=== PATIENT | male | born 1980 | race Two or more races ===

== ENCOUNTER 2017-11-09 19:21 | Emergency (ER) | payer MEDICAID, OTHER ==
[~2017-11-09] VITALS: Ht 165.1 cm; Wt 124.7 kg
[2017-11-09 20:54] LABS: Basophils # (auto) 0 uL; Basophils % (auto) 0.2 % (0.0-2.0); Eosinophils # (auto) 0 uL; Hematocrit 48.2 % (41.0-53.0); Hemoglobin 16.4 g/dL (13.5-17.5); Lymphocytes # (auto) 1.4 uL; Lymphocytes % (auto) 15.9 % (10.0-50.0); Mean Corpuscular Hemoglobin 28.5 pg (28.0-32.0); Mean Corpuscular Hgb Conc. 34.1 g/dL (32.0-36.0); Mean Corpuscular Volume 83.6 fL (80.0-100.0); Monocytes # (auto) 0.6 uL; Monocytes % (auto) 6.5 % (0.0-12.0); Neutrophils # (auto) 6.9 uL; Neutrophils % (auto) 77.4 % (37.0-80.0); Nucleated Red Blood Cells % 0.1 %; Platelet Count (auto) 268 10^3/uL (140-450); Red Blood Cells 5.76 10^6/uL (4.5-5.90); Red Cell Distribution Width 13.4 % (11.8-14.3); White Blood Cell 8.9 10^3/uL (4.4-10.8)
[2017-11-09 21:06] LABS: INR 0.93 (0.9-1.15); Partial Thromboplastin Time 30.9 sec (23.78-33.04)
[2017-11-09 21:20] LABS: Chloride 107 mmol/L (98-107); Potassium 3.7 mmol/L (3.5-5.1); Sodium 142 mmol/L (136-145)
[2017-11-09 21:27] LABS: Alanine Aminotransferase 90 U/L (16-61); Albumin 3.6 g/dL (3.4-5.0); Anion Gap 12 (5-15); Aspartate Aminotransferase 37 U/L (15-37); BUN/Creatinine Ratio 13.8; Blood Urea Nitrogen 12 mg/dL (7-18); Calcium 8.1 mg/dL (8.5-10.1); Carbon Dioxide 23 mmol/L (21-32); GFR African American 128 mL/min; GFR Non-African American 106 mL/min; Glucose 134 mg/dL (74-106); Magnesium 2.2 mg/dL (1.6-2.6)
[2017-11-09 21:30] LABS: Alkaline Phosphatase 137 U/L (45-117); Bilirubin, Total 0.8 mg/dL (0.2-1.0); Total Protein 7.7 g/dL (6.4-8.2)
[2017-11-09 21:42] LABS: Alcohol, Urine < 3.0 mg/dL (0-5); Amphetamine Screen, Urine NEGATIVE (NEGATIVE); Barbiturate Scree,Urine NEGATIVE (NEGATIVE); Benzodiazephine Screen, Urine NEGATIVE (NEGATIVE); Cannabinoid Screen, Urine NEGATIVE (NEGATIVE); Cocaine Screen, Urine NEGATIVE (NEGATIVE); Opiate Scree,Urine NEGATIVE (NEGATIVE); Phencyclidine Screen, Urine NEGATIVE (NEGATIVE)
[2017-11-10 02:20] VITALS: BP 133/88
== END 2017-11-10 05:20 | disposition home or self-care (01) ==
LOC: ER 19:21
DX: R07.89 Other chest pain (principal); R42 Dizziness and giddiness; R63.4 Abnormal weight loss; R53.1 Weakness; F20.9 Schizophrenia, unspecified; Z88.0 Allergy status to penicillin
CPT/HCPCS: 36415; 71045; 80053; 80307; 83735; 83880; 84443; 84484; 85025; 85610; 85730; 93005

== ENCOUNTER 2018-01-29 15:28 | Emergency (ER) | payer MEDICAID ==
[~2018-01-29] VITALS: Ht 165.1 cm; Wt 117.9 kg
[2018-01-29] MEDS ORDERED: ASPirin 81 mg TAB PO ONE ×2 (15:45)
[2018-01-29 16:30] LABS: Basophils # (auto) 0 uL; Basophils % (auto) 0.1 % (0.0-2.0); Eosinophils # (auto) 0 uL; Hematocrit 48.1 % (41.0-53.0); Hemoglobin 16.7 g/dL (13.5-17.5); Lymphocytes # (auto) 1.6 uL; Lymphocytes % (auto) 20.1 % (10.0-50.0); Mean Corpuscular Hemoglobin 28.8 pg (28.0-32.0); Mean Corpuscular Hgb Conc. 34.7 g/dL (32.0-36.0); Mean Corpuscular Volume 83.1 fL (80.0-100.0); Monocytes # (auto) 0.6 uL; Monocytes % (auto) 7.5 % (0.0-12.0); Neutrophils # (auto) 5.8 uL; Neutrophils % (auto) 72.3 % (37.0-80.0); Nucleated Red Blood Cells % 0.5 %; Platelet Count (auto) 254 10^3/uL (140-450); Red Blood Cells 5.79 10^6/uL (4.5-5.90); Red Cell Distribution Width 13.6 % (11.8-14.3)
[2018-01-29 16:45] LABS: INR 0.93 (0.9-1.15); Partial Thromboplastin Time 32.1 sec (23.78-33.04)
[2018-01-29 16:50] LABS: Alanine Aminotransferase 100 U/L (16-61); Albumin 3.6 g/dL (3.4-5.0); Alkaline Phosphatase 136 U/L (45-117); Anion Gap 9 (5-15); Aspartate Aminotransferase 46 U/L (15-37); BUN/Creatinine Ratio 15.3; Blood Urea Nitrogen 13 mg/dL (7-18); Calcium 8.4 mg/dL (8.5-10.1); Carbon Dioxide 23 mmol/L (21-32); Chloride 108 mmol/L (98-107); GFR African American 131 mL/min; GFR Non-African American 108 mL/min; Glucose 92 mg/dL (74-106); Magnesium 2.7 mg/dL (1.6-2.6); Potassium 3.9 mmol/L (3.5-5.1); Sodium 140 mmol/L (136-145)
[2018-01-29 20:25] VITALS: BP 139/98
== END 2018-01-29 18:46 | disposition home or self-care (01) ==
LOC: ER 15:31
DX: R07.89 Other chest pain (principal); I10 Essential (primary) hypertension; Z88.0 Allergy status to penicillin
CPT/HCPCS: 36415; 71046; 76705; 80053; 83735; 83880; 84484; 85025; 85610; 85730; 93005; 94761

== ENCOUNTER 2018-09-27 17:03 | Emergency (ER) | payer MEDICAID ==
[~2018-09-27] VITALS: Ht 165.1 cm; Wt 94.3 kg
[2018-09-27 17:32] LABS: Basophils # (auto) 0 uL; Basophils % (auto) 0.3 % (0.0-2.0); Eosinophils # (auto) 0 uL; Hematocrit 46.3 % (41.0-53.0); Lymphocytes # (auto) 1.4 uL; Lymphocytes % (auto) 19.7 % (10.0-50.0); Mean Corpuscular Hemoglobin 28.7 pg (28.0-32.0); Mean Corpuscular Hgb Conc. 34.5 g/dL (32.0-36.0); Mean Corpuscular Volume 83.1 fL (80.0-100.0); Monocytes # (auto) 0.5 uL; Monocytes % (auto) 6.6 % (0.0-12.0); Neutrophils # (auto) 5.3 uL; Neutrophils % (auto) 73.4 % (37.0-80.0); Nucleated Red Blood Cells % 0.1 %; Platelet Count (auto) 211 10^3/uL (140-450); Red Blood Cells 5.57 10^6/uL (4.5-5.90); Red Cell Distribution Width 12.7 % (11.8-14.3); White Blood Cell 7.2 10^3/uL (4.4-10.8)
[2018-09-27 17:52] LABS: Alanine Aminotransferase 49 U/L (16-61); Albumin 3.9 g/dL (3.4-5.0); Amylase 31 U/L (25-115); Anion Gap 10 (5-15); Aspartate Aminotransferase 24 U/L (15-37); Blood Urea Nitrogen 17 mg/dL (7-18); Calcium 8.1 mg/dL (8.5-10.1); Carbon Dioxide 21 mmol/L (21-32); Chloride 110 mmol/L (98-107); Glucose 107 mg/dL (74-106); Lipase 95 U/L (73-393); Magnesium 2.4 mg/dL (1.6-2.6); Potassium 3.6 mmol/L (3.5-5.1); Sodium 141 mmol/L (136-145)
[2018-09-27 17:58] LABS: Alkaline Phosphatase 104 U/L (45-117); BUN/Creatinine Ratio 19.1; Bilirubin, Total 1.1 mg/dL (0.2-1.0); GFR African American 124 mL/min; GFR Non-African American 102 mL/min; Total Protein 7.7 g/dL (6.4-8.2)
[2018-09-27 23:15] LABS: Urine Bacteria NONE SEEN /hpf (None Seen); Urine Blood Negative /uL (Negative); Urine Mucus FEW (None Seen); Urine Specific Gravity 1.009 (1.001-1.035); Urine WBC 1 /hpf (0 - 3)
[2018-09-27 23:16] LABS: Alcohol, Urine < 3.0 mg/dL (0-5); Amphetamine Screen, Urine NEGATIVE (NEGATIVE); Barbiturate Scree,Urine NEGATIVE (NEGATIVE); Benzodiazephine Screen, Urine NEGATIVE (NEGATIVE); Cannabinoid Screen, Urine NEGATIVE (NEGATIVE); Cocaine Screen, Urine NEGATIVE (NEGATIVE); Opiate Scree,Urine NEGATIVE (NEGATIVE); Phencyclidine Screen, Urine NEGATIVE (NEGATIVE)
[2018-09-27 23:36] VITALS: BP 119/72
== END 2018-09-28 02:10 | disposition home or self-care (01) ==
LOC: ER 17:06
DX: R07.89 Other chest pain (principal); K21.9 Gastro-esophageal reflux disease without esophagitis; R42 Dizziness and giddiness; I10 Essential (primary) hypertension; Z88.0 Allergy status to penicillin
CPT/HCPCS: 36415; 71046; 80053; 80307; 81001; 82150; 83690; 83735; 84484; 85025; 93005

== ENCOUNTER 2019-05-31 16:04 | Emergency (ER) | payer MEDICAID ==
[~2019-05-31] VITALS: Ht 165.1 cm; Wt 87.1 kg
[2019-05-31 18:22] VITALS: BP 128/82
== END 2019-05-31 18:20 | disposition home or self-care (01) ==
LOC: ER 16:09
DX: F32.9 Major depressive disorder, single episode, unspecified (principal); F20.9 Schizophrenia, unspecified; I10 Essential (primary) hypertension

== ENCOUNTER 2024-08-03 09:41 | Emergency (ER) | payer MEDICAID ==
[~2024-08-03] VITALS: Ht 165.1 cm; Wt 103.6 kg
[2024-08-03 09:51] VITALS: BP 135/84; PULSE 108; RESP 16; TEMP 98.3; O2SAT 94
--- NOTE | 2024-08-03 10:36 | ED.PDOC ---
Musculoskeletal HPI Comments 44 year old male with a pertinent MHx of a fracture to the left great toe one month ago presents for left toe pain. States he was never given crutches and has been endorsing pain with prolonged ambulation and prolonged standing Denies taking medications at this time Denies any redness swelling warmth to the affected extremity. Denies fevers chills nausea vomiting diarrhea Chief Complaint: Lower Extremity Time Seen by MD: 09:57 Primary Care Provider: none Reviewed Notes: Nurses Notes, Medications, Allergies Allergies: Coded Allergies: Penicillins (Verified Allergy, Unknown, 05/31/19) Information Source: Patient Mode of Arrival: Ambulatory Past Medical History PAST MEDICAL HISTORY: HTN, Schizophrenia Surgical History: Denies all surgeries Family History Family History: Unknown Social History Smoker: Non-Smoker Alcohol: Denies ETOH Use Drugs: Denies Drug Use Lives In: Home All Other Systems: Reviewed and Negative (Per HPI) Physical Exam General Appearance: No Apparent Distress, Normal HEENT: Normal ENT Inspection, Pharynx Normal, TMs Normal Neck: Full Range of Motion, Non-Tender, Normal, Normal Inspection Respiratory: Chest Non-Tender, Lungs Clear, No Accessory Muscle Use, No Respiratory Distress, Normal Breath Sounds Cardiovascular: No Edema, No JVD, No Murmur, No Gallop, Normal Peripheral Pulses, Regular Rate/Rhythm Breast Exam: Deferred Gastrointestinal: No Organomegaly, Non Tender, No Pulsatile Mass, Normal Bowel Sounds, Soft Genitalia: Deferred Pelvic: Deferred Rectal: Deferred Extremities: No calf tenderness, Normal capillary refill, Normal inspection, Normal range of motion, Non-tender, No pedal edema Musculoskeletal : Apperance: Normal 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 Was a procedure done?: No Images 1 - Gross abnormality inspection. No ecchymosis swelling open wounds. No tenderness to palpation. Full range of motion. Nail bed intact. No surrounding erythema to the nail bed. Dorsalis pedis two pulses 2+ and distal neuro sensation intact Differential Diagnosis EXT Differential Diagnosis: Fracture, Sprain, Dislocation X-Ray, Labs, Meds, VS Vital Signs Date Time Temp Pulse Resp B/P (MAP) Pulse Ox O2 Delivery O2 Flow Rate FiO2 2/25/25 09:51 98.3 108 16 135/84 (101) 94 08/03/24 09:51 98.3 108 16 135/84 (101) 94 98.3 08/03/24 09:51 108 16 X-Ray, Labs, Meds, VS Comment After ROS and physical examination there are no red flags. No indication for imaging at this time+ Recommended patricia taping system Crutches given On reevaluation, patient had symptomatic improvement. Patient is stable for discharge at this time. External notes reviewed. Test results and diagnostic imaging interpreted. All diagnostic findings, discharge care, education and instructions provided Follow-up with PCP in 2 to 3 days Patient verbalized understanding and agreed to treatment plan Vital signs stable, afebrile, no acute distress noted Patient ambulatory with strong steady gait Advised to return precautions for any new or worsening symptoms, return to ER immediately for re-evaluation Patient is aware that the purpose of this visit was for an acute medical emergency requiring emergent stabilization. Chronic conditions, including malignancies have not been ruled out. Patient is instructed to follow up with PCP as directed and discharge instructions for continued care and workup. If unable to arrange follow-up, patient is to return to the emergency department for reassessment. Patient (parent or legal guardian if applicable) was given verbal and written discharge instructions and acknowledges understanding. Time of 1ST Reevaluation: 10:00 Reevaluation 1ST: Improved Patient Education/Counseling: Diagnosis, Treatment Family Education/Counseling: Diagnosis, Treatment Departure 1 Departure Time of Disposition: 10:38 Impression: Primary Impression: Fracture of left great toe Qualified Codes: S92.405S - Nondisplaced unspecified fracture of left great toe, sequela Disposition: 01 HOME / SELF CARE / HOMELESS Condition: Stable Discharged With: Self Critical Care Note Critical Care Time?: No Stability Stability form required: No Heart Score Heart Score: Heart Score Response (Comments) Value History N/A 0 EKG N/A 0 Age N/A 0 Risk Factors N/A 0 Troponin N/A 0 Total 0 MANASA SMITH NP Aug 03, 2024 10:36
== END 2024-08-03 11:35 | disposition home or self-care (01) ==
LOC: ER 09:41
DX: S92.492A Other fracture of left great toe, initial encounter for closed fracture (principal); I10 Essential (primary) hypertension; F20.9 Schizophrenia, unspecified; Z88.0 Allergy status to penicillin; X58.XXXA Exposure to other specified factors, initial encounter; Y93.89 Activity, other specified; Y92.89 Other specified places as the place of occurrence of the external cause; Y99.8 Other external cause status

== ENCOUNTER 2024-10-20 18:50 | Emergency (ER) | payer MEDICAID ==
[~2024-10-20] VITALS: Ht 165.1 cm; Wt 104.0 kg
--- NOTE | 2024-10-20 19:01 | ECG ---
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
[2024-10-20 19:26] LABS: Basophils # (auto) 0 10 ^3/uL (0-0.2); Basophils % (auto) 0.5 % (0.0-2.0); Eosinophils # (auto) 0 10 ^3/uL (0-0.8); Eosinophils % (auto) 0.1 % (0.0-7.0); Hemoglobin 17.3 g/dL (13.5-17.5); Lymphocytes # (auto) 1.5 10 ^3/uL (0.4-5.4); Monocytes # (auto) 0.3 10 ^3/uL (0-1.3); Neutrophils # (auto) 4.5 10 ^3/uL (1.6-8.6); Red Cell Distribution Width 13.1 % (11.8-14.3)
[2024-10-20 19:28] LABS: Hematocrit 49.7 % (41.0-53.0); Lymphocytes % (auto) 23.4 % (10.0-50.0); Mean Corpuscular Hemoglobin 28.9 pg (28.0-32.0); Mean Corpuscular Hgb Conc. 34.9 g/dL (32.0-36.0); Mean Corpuscular Volume 82.8 fL (80.0-100.0); Monocytes % (auto) 4.3 % (0.0-12.0); Neutrophils % (auto) 71.7 % (37.0-80.0); Platelet Count (auto) 226 10^3/uL (140-450); White Blood Cell 6.2 10^3/uL (4.4-10.8)
[2024-10-20 19:44] LABS: Sodium 143 mmol/L (136-145)
[2024-10-20 19:45] LABS: Anion Gap 11 (5-15); Calcium 9.1 mg/dL (8.7-10.4); Carbon Dioxide 21 mmol/L (20-31)
[2024-10-20 19:50] LABS: BUN/Creatinine Ratio 14.3 (10.0-20.0); Blood Urea Nitrogen 13 mg/dL (9-23)
[2024-10-20 19:56] LABS: Chloride 111 mmol/L (98-107); Glucose 164 mg/dL (74-106)
--- NOTE | 2024-10-20 19:56 | DVH ---
EXAMINATIONS: PA and lateral chest radiograph CLINICAL HISTORY: Palpitations COMPARISON: None FINDINGS: No dominant consolidations. The costophrenic angles appear clear. No sizable pleural effusions or pn eumothorax identified. The cardiomediastinal silhouette appears within normal limits. IMPRESSION: No acute cardiopulmonary findings as visualized.
--- NOTE | 2024-10-20 20:25 | ED.PDOC ---
History of Present Illness HPI Comments 44-year-old male who comes in with chief complaint of palpitations. The patient is started with the symptoms a few months ago. There has been no vomiting or diarrhea. The patient denies any new medications or any type of drug use. He does have a history of schizophrenia and depression. The patient noticed that his heart was beating rapidly so he came to the emergency department's for evaluation. He denies any headache or actual chest pain. Chief Complaint: Palpitations Time Seen by MD: 19:11 Primary Care Provider: none Reviewed Notes: Nurses Notes, Medications, Allergies (Allergies listed above) Allergies: Coded Allergies: Latex (Verified Allergy, Severe, 10/20/24) Penicillins (Verified Allergy, Unknown, 05/31/19) Uncoded Allergies: BEE STING (Allergy, Severe, 10/20/24) Information Source: Patient Mode of Arrival: Ambulatory Severity: Mild Timing: Months Duration: Intermittent Prehospital treatment: None Associated signs and symptoms Palpitations but no shortness a breath Past Medical History PAST MEDICAL HISTORY: Depression, HTN, Schizophrenia Surgical History: Denies all surgeries Family History Family History: Family hx of DM, Family hx of Cancer Social History Smoker: Non-Smoker Alcohol: Occasionally Drugs: Denies Drug Use Lives In: Home Constitutional: denies: chills, diaphoresis, fatigue, fever, malaise, sweats, weakness, others EENTM: denies: blurred vision, double vision, ear bleeding, ear discharge, ear drainage, ear pain, ear ringing, eye pain, eye redness, hearing loss, mouth pain, mouth swelling, nasal discharge, nose bleeding, nose congestion, nose pain, photophobia, tearing, throat pain, throat swelling, voice changes, others Respiratory: denies: cough, hemoptysis, orthopnea, SOB at rest, shortness of breath, SOB with excertion, stridor, wheezing, others Cardiovascular: denies: chest pain, dizzy spells, diaphoresis, Dyspnea on exertion, edema, irregular heart beat, left arm pain, lightheadedness, palpitations, PND, syncope, others Gastrointestinal: denies: abdomen distended, abdominal pain, blood streaked bowels, constipated, diarrhea, dysphagia, difficulty swallowing, hematemesis, melena, nausea, poor appetite, poor fluid intake, rectal bleeding, rectal pain, vomiting, others Genitourinary: denies: burning, dysuria, flank pain, frequency, hematuria, incontinence, penile discharge, penile sore, pain, testicle pain, testicle swelling, urgency, others Neurological: denies: dizziness, fainting, headache, left sided numbness, left sided weakness, numbness, paresthesia, pre-existing deficit, right sided numbness, right sided weakness, seizure, speech problems, tingling, tremors, weakness, others Musculoskeletal: denies: back pain, gout, joint pain, joint swelling, muscle pain, muscle stiffness, neck pain, others Integumetry: denies: bruises, change in color, change in hair/nails, dryness, laceration, lesions, lumps, rash, wounds, others Allergic/Immunocompromised: denies: Difficulty Healing, Frequent Infections, Hives, Itching, others Hematologic/Lymphatic: denies: anemia, blood clots, easy bleeding, easy bruising, swollen glands, others Endocrine: denies: excessive hunger, excessive sweating, excessive thirst, excessive urination, flushing, intolerance to cold, intolerance to heat, unexpla ined weight gain, unexplained weight loss, others Psychiatric: denies: anxiety, bipolar disorder, depression, hopeless, panic disorder, schizophrenia, sleepless, suicidal, others Physical Exam General Appearance: No Apparent Distress HEENT: Normal ENT Inspection, Pharynx Normal, TMs Normal Neck: Full Range of Motion, Non-Tender, Normal, Normal Inspection Respiratory: Chest Non-Tender, Lungs Clear, No Accessory Muscle Use, No Respiratory Distress, Normal Breath Sounds Cardiovascular: No Edema, No JVD, No Murmur, No Gallop, Tachycardia Breast Exam: Deferred Gastrointestinal: No Organomegaly, Non Tender, No Pulsatile Mass, Normal Bowel Sounds, Soft Genitalia: Deferred Pelvic: Deferred Rectal: Deferred Extremities: No calf tenderness, Normal capillary refill, Normal inspection, Normal range of motion, Non-tender, No pedal edema Musculoskeletal : Apperance: Normal 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 Was a procedure done?: No EKG EKG : Pulse Rate (adult): 114 [place]: Normal Cardiac Rhythm: ST ST: Nonsp Differential Dx Considerations may include: ACS, KS, electrolyte imbalance X-Ray, Labs, Meds, VS Vital Signs Date Time Temp Pulse Resp B/P (MAP) Pulse Ox O2 Delivery O2 Flow Rate FiO2 10/20/24 20:07 114 10/20/24 18:57 119 10/20/24 18:56 98.8 124 20 131/86 (101) 94 98.8 Lab Test 10/20/24 19:13 Range/Units White Blood Count 6.2 4.4-10.8 10^3/uL Red Blood Count 6.00 H 4.5-5.90 10^6/uL Hemoglobin 17.3 13.5-17.5 g/dL Hematocrit 49.7 41.0-53.0 % Mean Corpuscular Volume 82.8 80.0-100.0 fL Mean Corpuscular Hemoglobin 28.9 28.0-32.0 pg Mean Corpuscular Hemoglobin Concent 34.9 32.0-36.0 g/dL Red Cell Distribution Width 13.1 11.8-14.3 % Platelet Count 226 140-450 10^3/uL Mean Platelet Volume 7.7 6.9-10.8 fL Neutrophils (%) (Auto) 71.7 37.0-80.0 % Lymphocytes (%) (Auto) 23.4 10.0-50.0 % Monocytes (%) (Auto) 4.3 0.0-12.0 % Eosinophils (%) (Auto) 0.1 0.0-7.0 % Basophils (%) (Auto) 0.5 0.0-2.0 % Neutrophils # (Auto) 4.5 1.6-8.6 10 ^3/uL Lymphocytes # (Auto) 1.5 0.4-5.4 10 ^3/uL Monocytes # (Auto) 0.3 0-1.3 10 ^3/uL Eosinophils # (Auto) 0 0-0.8 10 ^3/uL Basophils # (Auto) 0 0-0.2 10 ^3/uL Nucleated Red Blood Cells 0.0 % Sodium Level 143 136-145 mmol/L Potassium Level 4.0 3.5-5.1 mmol/L Chloride Level 111 H 98-107 mmol/L Carbon Dioxide Level 21 20-31 mmol/L Anion Gap 11 5-15 Blood Urea Nitrogen 13 9-23 mg/dL Creatinine 0.91 0.700-1.30 mg/dL Glomerular Filtration Rate Calc 107 >90 mL/min BUN/Creatinine Ratio 14.3 10.0-20.0 Serum Glucose 164 H 74-106 mg/dL Calcium Level 9.1 8.7-10.4 mg/dL Troponin I High Sensitivity < 3 L </=54 ng/L The CBC is within normal limits The chemistry panel is within normal limits The glucose is 164 The troponin level is negative At this time, the patient's chest x-ray is negative The patient will be discharged with a diagnosis of palpitations The patient will return to the emergency department's the condition worsens. Images Reviewed?: Images reviewed and evaluated by me Time of 1ST Reevaluation: 20:22 Reevaluation 1ST: Unchanged Patient Education/Counseling: Diagnosis, Treatment, Prognosis, Need For Follow Up Family Education/Counseling: No Family Present Departure 1 Departure Time of Disposition: 20:24 Impression: Primary Impression: Palpitations Disposition: 01 HOME / SELF CARE / HOMELESS Condition: Fair Discharged With: Self Critical Care Note Critical Care Time?: No Stability Stability form required: No Heart Score Heart Score: Heart Score Response (Comments) Value History Slightly Suspicious 0 EKG Normal 0 Age <45 0 Risk Factors No known risk factors 0 Troponin Normal limit 0 Total 0 TORRI ESCALERA MD October 20, 2024 20:25
[2024-10-21 00:20] VITALS: BP 126/93; PULSE 101; RESP 16; TEMP 98.6; O2SAT 98
--- NOTE | 2024-10-21 06:42 | ECG ---
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
== END 2024-10-21 00:36 | disposition home or self-care (01) ==
LOC: ER 18:50
DX: R00.2 Palpitations (principal); I10 Essential (primary) hypertension; F20.9 Schizophrenia, unspecified; Z88.0 Allergy status to penicillin; Z91.040 Latex allergy status
CPT/HCPCS: 36415; 71046; 80048; 84484; 85025; 93005